=== PATIENT | female | born 1995 | race Caucasian/White ===

== ENCOUNTER → 2021-11-11 09:12 | Outpatient (CLI) | payer OTHER, SELFPAY ==
[2021-11-11 11:53] LABS: Appearance Urine UA CLEAR; Bilirubin Urine UA NEGATIVE (NEGATIVE); Color Urine UA YELLOW; Glucose Urine UA NEGATIVE (Negative); Ketones Urine UA NEGATIVE (NEGATIVE); Leukocyte Esterase Urine UA NEGATIVE (NEGATIVE); Nitrite Urine UA NEGATIVE (Negative); Occult Blood Urine UA NEGATIVE (Negative); Protein Urine UA NEGATIVE (Negative); Specific Gravity Urine UA <=1.005 (1.000-1.035); Urobilinogen Urine UA 0.2 E.U./dL (0.2)
[2021-11-11 11:54] LABS: pH Urine UA 6.5 (4.5-8.0)
[2021-11-11 14:44] LABS: Urine N gonorrhoeae NOT DETECTED
[2021-11-11 15:02] LABS: Urine Chlamydia NOT DETECTED
== END ==
PROVIDERS: Family Provider Pediatrics; PCP Internal Medicine; Visit Provider Obstetrics & Gynecology
DX: Z34.01 Encounter for supervision of normal first pregnancy, first trimester (principal); Z3A.08 8 weeks gestation of pregnancy
CPT/HCPCS: 81003; 87086; 87491; 87591

== ENCOUNTER → 2021-11-11 10:05 | Outpatient (CLI) | payer OTHER, SELFPAY ==
[2021-11-11 10:33] LABS: Add Manual Diff / Slide Review NO; Basophils Absolute Auto 0 /uL (0-100); Basophils Percent Auto 0.6 % (0-2); Eosinophils Absolute Auto 0 /uL (0-450); Eosinophils Percent Auto 0.8 % (2-4); Hematocrit 35.6 % (36-46); Hemoglobin 12.2 g/dL (12.0-16.0); Lymphocytes Absolute Auto 1500 /uL (1100-4500); Lymphocytes Percent Auto 29.7 % (25-40); Mean Corpuscular HGB Conc 34.4 % (30-36); Mean Corpuscular Hemoglobin 29.5 PG (26-34); Mean Corpuscular Volume 85.8 fL (80-100); Monocytes Absolute Auto 500 /uL (0-900); Monocytes Percent Auto 10.7 % (3-14); Neutrophils Absolute Auto 2900 /uL (1500-7000); Neutrophils Percent Auto 58.2 % (50-75); Platelet Count 230 X10^3/uL (150-400); Red Blood Cell Count 4.15 X10^6/uL (4.0-5.2); Red Cell Distribution Width 13.8 % (11.6-14.8); White Blood Cell Count 4.9 X10^3/uL (4.5-11.0)
[2021-11-12 06:07] LABS: RPR Screen Non Reactive (Non Reactive)
[2021-11-12 08:42] LABS: Varicella IgG Antibody <135 index (Immune >165)
[2021-11-12 21:29] LABS: Hepatitis B Surface Antigen NEGATIVE s/c (NEGATIVE); Rubella Antibody IgG 5.6 IU/mL (>15)
[2021-11-12 21:35] LABS: HIV 1 & 2 Ab/Ag 4th Gen Combo NEGATIVE (NEGATIVE); Hep C Virus Ab w/Reflex Quant NEGATIVE s/c (NEGATIVE)
== END ==
PROVIDERS: Family Provider Pediatrics; PCP Internal Medicine; Referring Provider Obstetrics & Gynecology; Visit Provider Obstetrics & Gynecology
DX: Z34.01 Encounter for supervision of normal first pregnancy, first trimester (principal); Z3A.08 8 weeks gestation of pregnancy
CPT/HCPCS: 36415; 80055; 81003; 86787; 86803; 86850; 86900; 86901; 87086; 87389; 87491; 87591

== ENCOUNTER → 2021-12-17 12:45 | Outpatient (CLI) | payer OTHER, SELFPAY ==
--- NOTE | 2021-12-17 12:45 | DI.US.S_ITS ---
PROCEDURE: US OB <= 14 WEEKS FETUS INDICATIONS: evaluate for subchorionic bleed, bleeding in OUTSIDE/PRIOR DATING DATA: Last menstrual period (LMP): 09/12/2021. LMP-based estimated date of delivery (MORGAN): 06/19/2022 First dating scan (date and location): 11/11/2021 Estimated date of delivery (MORGAN) from first dating scan: 06/24/2022 The calculations are made using the study generated MORGAN of 06/24/2022. TECHNIQUE: Real-time scanning was performed of the fetus and maternal pelvic organs, with image documentation. COMPARISON: [facility], US, US OB <= 14 WEEKS FETUS, 11/11/2021, 9:37. FINDINGS: Embryo: Single intrauterine gestational sac is seen with fetus in breech presentation. heart rate is 157 beats per minute. [place]-rump length measures 7.4 cm you. Estimated gestational age based on current study is 13 weeks, 4 days. Estimated gestational age based on previous study is 13 weeks, 5 days. Placenta location is posterior, placental edge is in close proximity to internal os. Maternal organs: Right ovary is not visualized. Exophytic simple appearing cyst is noted in right ovary measures 1.5 x 1.9 x 1.8 cm in size. There is and intramural fibroid seen in left myometrium measures 0.8 x 1.5 x 1.2 cm in size. IMPRESSION: 1. Single live intrauterine gestation with fetus in breech presentation. heart rate is 157 beats per minute. Normal growth. 2. Placental edge is close to internal os suggest ultrasound follow-up. 3. Simple appearing exophytic cyst in right ovary as above. Small uterine fibroid as above. We strive to produce accurate, complete, and clear reports of imaging services. To assist us in improving patient care, this report was composed using standard report templates and voice recognition software. Therefore, it may contain abnormal punctuation, insertions and/or omissions. Occasional wrong-word or sound-alike substitutions may occur. Though we review the report and make efforts to correct it, we do recommend that the report be read carefully in proper context to recognize any text inaccuracies. Dictated by: Juan Daniel Lawrence M.D. on 12/17/2021 at 16:46 Approved by: Juan Daniel Lawrence M.D. on 12/17/2021 at 16:51
== END ==
PROVIDERS: Family Provider Pediatrics; PCP Internal Medicine; Referring Provider Obstetrics & Gynecology; Visit Provider Obstetrics & Gynecology
DX: O20.9 Hemorrhage in early pregnancy, unspecified (principal); O32.1XX0 Maternal care for breech presentation, not applicable or unspecified
CPT/HCPCS: 76801